=== PATIENT | male | born 1970 | race American Indian/Alaskan Native ===

== ENCOUNTER 2017-01-02 07:05 | Emergency (ER) | payer OTHER ==
[2017-01-02 07:11] VITALS: BP 132/99; PULSE 82; TEMP 97.9; BMI 26.5
--- NOTE | 2017-01-02 07:18 | PDOC ---
History of Present Illness <Jaswinder Webb - Last Filed: 01/02/17 09:53> - General History Source: Patient Exam Limitations: No Limitations - History of Present Illness Initial Comments: 01/02/17 07:50 The patient is a 46 year old male, with no significant past medical history, who presents to the emergency department complaining of left upper quadrant pain radiating into his left flank since earlier this morning. The patient reports he was driving to work from [place], when suddenly he he began to feel a sharp pain in his LUQ. Patient states he had difficulty driving secondary to abdominal pain. Patient reports he was otherwise feeling fine when he woke up this morning. Patient denies any dysuria, hematuria, frequency, or urgency. Patient denies any nausea, vomiting, diarrhea, or constipation. Patient denies any fever, chills, cough, headache, or dizziness. Allergies: NKDA. ETOH Past Surgical History: Cholecystectomy, Back surgery Social History: Current everyday smoker. No ETOH or drug use. <Serge Dillard - Last Filed: 01/02/17 16:57> - General Chief Complaint: Pain Stated Complaint: STOMACH PAIN Time Seen by Provider: 01/02/17 07:17 Past History - Past Medical History Other medical history: denies - Surgical History Cholecystectomy: Yes Neurologic Surgery: Yes (back) - Psycho/Social/Smoking Cessation Hx Anxiety: No Suicidal Ideation: No Smoking History: Current some day smoker Have you smoked in the past 12 months: Yes Number of Cigarettes Smoked Daily: 2 Information on smoking cessation initiated: No Hx Alcohol Use: No Drug/Substance Use Hx: No Substance Use Type: None <Jaswinder Webb - Last Filed: 01/02/17 09:53> <Serge Dillard - Last Filed: 01/02/17 16:57> - Past Medical History Allergies/Adverse Reactions: Allergies Allergy/AdvReac Type Severity Reaction Status Date / Time alcohol Allergy Hives Verified 01/02/17 07:10 Home Medications: Ambulatory Orders Ondansetron [Zofran *Odt*] 8 mg SL TID #30 od.tablet 01/02/17 Oxycodone HCl/Acetaminophen [Percocet 5-325 mg Tablet] 1 - 2 tab PO Q4H #20 tablet MDD 6 01/02/17 Review of Systems - Review of Systems Able to Perform ROS?: Yes Comments:: 01/02/17 07:51 GENERAL/CONSTITUTIONAL: No fever or chills. No weakness. HEAD, EYES, EARS, NOSE AND THROAT: No change in vision. No ear pain or discharge. No sore throat. CARDIOVASCULAR: No chest pain or shortness of breath. RESPIRATORY: No cough, wheezing, or hemoptysis. GASTROINTESTINAL: Yes: +LUQ pain. No nausea, vomiting, diarrhea or constipation. GENITOURINARY: Yes: +Left flank pain. No dysuria, frequency, or change in urination. MUSCULOSKELETAL: No joint or muscle swelling or pain. No neck or back pain. SKIN: No rash NEUROLOGIC: Yes: +paresthesias to the left foot. No headache, vertigo, loss of consciousness, or change in strength/sensation. ENDOCRINE: No increased thirst. No abnormal weight change. HEMATOLOGIC/LYMPHATIC: No anemia, easy bleeding, or history of blood clots. ALLERGIC/IMMUNOLOGIC: No hives or skin allergy. <Serge Dillard - Last Filed: 01/02/17 16:57> *Physical Exam - Vital Signs Last Vital Signs Temp Pulse Resp BP Pulse Ox 97.9 F 82 22 132/99 10 L 01/02/17 07:08 01/02/17 07:08 01/02/17 07:08 01/02/17 07:08 01/02/17 07:08 <Jaswinder Webb - Last Filed: 01/02/17 09:53> - Vital Signs Last Vital Signs Temp Pulse Resp BP Pulse Ox 97.9 F 82 22 132/99 10 L 01/02/17 07:08 01/02/17 07:08 01/02/17 07:08 01/02/17 07:08 01/02/17 07:08 - Physical Exam Comments: 01/02/17 07:51 GENERAL: Awake, alert, and fully oriented, in no acute distress HEAD: No signs of trauma EYES: PERRLA, EOMI, sclera anicteric, conjunctiva clear ENT: Auricles normal inspection, hearing grossly normal, nares patent, oropharynx clear without exudates. Moist mucosa NECK: Normal ROM, supple, no lymphadenopathy, JVD, or masses LUNGS: Breath sounds equal, clear to auscultation bilaterally. No wheezes, and no crackles HEART: Regular rate and rhythm, normal S1 and S2, no murmurs, rubs or gallops ABDOMEN: Tenderness to palpation to the left upper quadrant. Soft, normoactive bowel sounds. No guarding, no rebound. No masses EXTREMITIES: Normal range of motion, no edema. No clubbing or cyanosis. No cords, erythema, or tenderness NEUROLOGICAL: Cranial nerves II through XII grossly intact. Normal speech, normal gait SKIN: Warm, Dry, normal turgor, no rashes or lesions noted. <Serge Dillard - Last Filed: 01/02/17 16:57> ED Treatment Course - LABORATORY CBC & Chemistry Diagram: 01/02/17 07:33 01/02/17 07:33 <Jaswinder Webb - Last Filed: 01/02/17 09:53> - LABORATORY CBC & Chemistry Diagram: 01/02/17 07:33 01/02/17 07:33 - RADIOLOGY Radiograph Interpretation: 01/02/17 16:56 EXAM: CT Abdomen and Pelvis INTERPRETED BY: Dr. Floyd REVIEWED BY: Dr. Webb IMPRESSION: 3 to 4 mm nonobstructing stone in the left renal lower pole. 4 mm obstructing stone in the distal left ureter just prior to the ureterovesical junction with mild left renal hydronephrosis and hydroureter. - Medications Given in the ED: ED Medications Discontinued Medications Generic Name Dose Route Start Last Admin Trade Name Freq PRN Reason Stop Dose Admin Ketorolac Tromethamine 30 mg 01/02/17 07:23 01/02/17 07:28 Toradol Injection - IVPUSH 01/02/17 07:24 30 mg ONCE ONE Administration Ondansetron HCl 4 mg 01/02/17 07:23 01/02/17 07:28 Zofran Injection IVPUSH 01/02/17 07:24 4 mg ONCE ONE Administration <Serge Dillard - Last Filed: 01/02/17 16:57> *DC/Admit/Observation/Transfer - Discharge Dispostion Admit: No - Attestations Physician Attestion: 01/02/17 07:17 I, Dr. Jaswinder Webb, attest that this document has been prepared under my direction and personally reviewed by me in its entirety. I further attest, that it accurately reflects all work, treatment, procedures and medical decision -making performed by me. <Jaswinder Webb - Last Filed: 01/02/17 09:53> - Attestations Scribe Attestion: 01/02/17 07:52 Documentation prepared by Serge Dillard, acting as medical donation professional for Jaswinder Webb DO. <Serge Dillard - Last Filed: 01/02/17 16:57> Diagnosis at time of Disposition: Ureteral stone with hydronephrosis - Discharge Dispostion Disposition: HOME Condition at time of disposition: Good - Prescriptions Prescriptions: Oxycodone HCl/Acetaminophen [Percocet 5-325 mg Tablet] 1 - 2 tab PO Q4H #20 tablet MDD 6 Ondansetron [Zofran *Odt*] 8 mg SL TID #30 od.tablet - Referrals Referrals: STAFF,NOT ON [Primary Care Provider] - Fred Aburto MD [Staff Physician] - - Patient Instructions Printed Discharge Instructions: DI for Kidney Stones Additional Instructions: See a Urologist within a week. Call today to make the appointment - Post Discharge Activity Work/School Note: Back to Work
[2017-01-02] MEDS ORDERED: ONDANSETRON 4 MG/2 ML VIAL IVPUSH ONE ×2 (07:23→08:31)
[2017-01-02] MEDS ORDERED: KETOROLAC TROMETHAMINE 30 MG/1 ML VIAL IVPUSH ONE (07:23)
[2017-01-02] MEDS ORDERED: KETOROLAC TROMETHAMINE 30 MG/1 ML VIAL ONE (07:29)
[2017-01-02] MEDS ORDERED: ONDANSETRON 4 MG/2 ML VIAL ONE ×2 (07:29→08:15)
[2017-01-02 07:45] LABS: BASOPHIL 0.6 % (0-2.0); EOSINOPHIL 4.3 % (0-4.5); MCH 30.2 pg (25.7-33.7); MCHC 33.9 g/dl (32.0-35.9); MEAN PLT VOLUME 7.9 fl (7.5-11.1); NEUTROPHILS 57.2 % (42.8-82.8); PLATELET COUNT 219 K/MM3 (134-434); RDW 13.5 % (11.9-15.9); WHITE BLOOD COUNT 7.2 K/mm3 (4.0-10.0)
[2017-01-02 07:47] LABS: URINE APPEARANCE CLEAR; URINE BILIRUBIN NEGATIVE (NEGATIVE); URINE COLOR LTYELLOW; URINE GLUCOSE (UA) NEGATIVE (NEGATIVE); URINE KETONE NEGATIVE (NEGATIVE); URINE LEUK ESTERASE NEGATIVE (NEGATIVE); URINE NITRITE NEGATIVE (NEGATIVE); URINE PROTEIN NEGATIVE (NEGATIVE); URINE UROBILINOGEN NEGATIVE E.U./dl (0.2-1.0)
[2017-01-02 07:59] LABS: URINE BLOOD 3+ (NEGATIVE)
[2017-01-02 08:00] LABS: INR 1.06 (0.82-1.09); PROTHROMBIN TIME (PATIENT) 11.7 SEC (9.98-11.88)
[2017-01-02 08:11] LABS: ALBUMIN 4.5 g/dl (3.4-5.0); ANION GAP 10 (8-16); BILIRUBIN,TOTAL 0.8 mg/dL (0.2-1.0); CALCIUM 9.2 mg/dL (8.5-10.1); CO2 27 mmol/L (21-32); COCKROFT - GAULT 89.77; GLUCOSE,RANDOM 114 mg/dL (74-106); SGOT/AST 22 U/L (15-37); SGPT/ALT 59 U/L (12-78); TOT PROT 7.7 g/dl (6.4-8.2)
[2017-01-02 08:12] LABS: ALK PHOS 111 U/L (45-117)
[2017-01-02 08:14] LABS: CALCIUM OXALATE CRYSTALS RARE /hpf (NONE SEEN); URINE MUCUS RARE; URINE RBC 437 /hpf (0-3); URINE WBC 3 /hpf (3-5)
[2017-01-02] MEDS ORDERED: HYDROmorphone HCL CARPU-JECT 1 MG/1 ML DISP.SYRIN ONE ×2 (08:15→09:30)
[2017-01-02] MEDS ORDERED: HYDROmorphone HCL CARPU-JECT 1 MG/1 ML DISP.SYRIN IVPUSH ONE ×2 (08:31→09:40)
== END 2017-01-02 10:14 | disposition home or self-care (01) ==
LOC: JER 07:05
PROC: 3E033NZ Introduction of Analgesics, Hypnotics, Sedatives into Peripheral Vein, Percutaneous Approach (ICD-10-PCS; principal; 2017-01-02)
PROC: 3E0233Z Introduction of Anti-inflammatory into Muscle, Percutaneous Approach (ICD-10-PCS; 2017-01-02)
PROC: 3E033GC Introduction of Other Therapeutic Substance into Peripheral Vein, Percutaneous Approach (ICD-10-PCS; 2017-01-02)
PROC: 3E033NZ Introduction of Analgesics, Hypnotics, Sedatives into Peripheral Vein, Percutaneous Approach (ICD-10-PCS; 2017-01-02)
PROC: 3E033GC Introduction of Other Therapeutic Substance into Peripheral Vein, Percutaneous Approach (ICD-10-PCS; 2017-01-02)
DX: N13.2 Hydronephrosis with renal and ureteral calculous obstruction (principal)
CPT/HCPCS: 36415; 74176-TC; 80053; 81003; 81015; 83690; 85025; 85610; 99283-25